=== PATIENT | female | born 1950 | race Caucasian/White ===

== ENCOUNTER → 2022-02-15 09:19 | Outpatient (CLI) | payer MEDICARE, SELFPAY ==
--- NOTE | ~2022-02-15 | DEXA_ITS ---
Bone Density Report Name: DEBORAH HERMAN Age: 71 Sex: Female Ethnicity: White Date of : 1950 Indication: osteopenia; monitoring treatment; height loss; asthma or emphysema; postmenopausal Referring Provider: MAXIMO HOLMAN Study: Bone densitometry was performed. Exam Date: February 15, 2022 Accession number: [id number] Bone Density: Region BMD T-score Z-score Classification AP Spine (L1-L4) 0.836 -1.9 0.4 Osteopenia Femoral Neck (Left) 0.677 -1.6 0.4 Osteopenia Total Hip (Left) 0.802 -1.1 0.6 Osteopenia Femoral Neck (Right) 0.749 -0.9 1.1 Normal Total Hip (Right) 0.778 -1.3 0.4 Osteopenia Total Hip Mean 0.790 -1.2 0.5 Osteopenia World Health Organization criteria for BMD impression classify patients as: Normal (T-score at or above -1.0), Osteopenia (T-score between -1.0 and -2.5), or Osteoporosis (T-score at or below -2.5). 10-year Fracture Risk: FRAX not reported because: Treated for osteoporosis Previous Exams: Region Exam Age BMD T-score BMD Change BMD Change Date g/cm2 vs Baseline vs Previous AP Spine(L1-L4) 02/15/2022 71 0.836 -1.9 0.048* -0.033* 08/04/2017 67 0.869 -1.6 0.081* -0.003 06/07/2014 63 0.872 -1.6 0.085* 0.063* 06/25/2010 59 0.809 -2.2 0.021 0.021 04/15/2007 56 0.788 -2.4 Total Hip(Left) 02/15/2022 71 0.802 -1.1 0.019 0.002 08/04/2017 67 0.800 -1.2 0.017 -0.015 06/07/2014 63 0.815 -1.0 0.032* 0.043* 06/25/2010 59 0.772 -1.4 -0.012 -0.012 04/15/2007 56 0.783 -1.3 Total Hip(Right) 02/15/2022 71 0.778 -1.3 0.002 0.003 08/04/2017 67 0.775 -1.4 -0.001 -0.007 06/07/2014 63 0.782 -1.3 0.006 0.034* 06/25/2010 59 0.748 -1.6 -0.028* -0.028* 04/15/2007 56 0.776 -1.4 *Denotes significance at 95% confidence level, LSC for AP Spine = 0.022 g/cm2, LSC for Total Hip = 0.027 g/cm2 Clinical Information Provided by Patient: Is being treated for osteoporosis Has used the following medications: HRT (i.e. estrogen/hormone therapy), Vitamin D Has the following medical conditions: Asthma or Emphysema Patient maximum height was 68 Menopause Age: 50 Drinks caffeinated beverages Onset of menses at age 11 Number of children 0 Impression: The kathya
== END ==
PROVIDERS: PCP Family Medicine; Visit Provider Obstetrics & Gynecology Gynecology
DX: Z78.0 Asymptomatic menopausal state (principal); M85.89 Other specified disorders of bone density and structure, multiple sites
CPT/HCPCS: 77080